=== PATIENT | male | born 1955 | race Caucasian/White ===

== ENCOUNTER 2023-01-08 15:49 | Emergency (ER) | payer MEDICARE, OTHER, SELFPAY ==
[2023-01-08 16:03] VITALS: BP 165/63; PULSE 69; RESP 20; TEMP 36.5; O2SAT 98; BMI 30.1
--- NOTE | 2023-01-08 16:03 | ED_ITS ---
HPI - Skin/Abscess/Foreign Bdy General Chief complaint: Skin/Abscess/Foreign Body Stated complaint: Abscess on back Time Seen by Provider: 01/08/23 16:19 Related Data Previous Rx's Medication Instructions Recorded doxycycline hyclate 100 mg tablet 100 mg PO BID #28 tabs 01/08/23 oxycodone-acetaminophen 5 mg-325 1 tab PO Q6H PRN pain #10 tabs 01/08/23 mg tablet (Percocet) Allergies Allergy/AdvReac Type Severity Reaction Status Date / Time No Known Allergies Allergy Verified 01/08/23 16:07 [facility] Social History Social History Advance Directives: No Advance Directives Information Provided: No Physical Exam Vital Signs: Vital Signs: Last Vital Signs Temp 97.7 F 01/08/23 16:03 Pulse 69 01/08/23 16:03 Resp 20 01/08/23 16:03 BP 165/63 H 01/08/23 16:03 Pulse Ox 98 01/08/23 16:03 O2 Del Method 01/08/23 16:03 BMI result Body Mass Index 30.1 Course Course Course Narrative: This is an RME: Additional HPI, ROS, PE not included below will be deferred to primary provider. Patient is a 67-year-old male who presents to the emergency department for evaluation of a chronic cyst to right upper back, 30+ years, however over past 2 weeks increased size, redness, purulent drainage, chills, tactile fever, significant pain. Denies known history of MRSA. Plan: labs, placed back in waiting room pending bed availability, may require incision and drainage Medications Administered Discontinued Medications Generic Name Dose Route Start Last Admin Trade Name Matilde PRN Reason Stop Dose Admin Lidocaine HCl 30 ml 01/08/23 17:37 01/08/23 17:40 Lidocaine Hcl 1 % Mpf 30 Ml Vial SUBCUT 01/08/23 17:38 30 ml ONCE ONE Administration Protocol Morphine Sulfate 4 mg 01/08/23 17:08 01/08/23 17:16 Morphine Sulfate 4 Mg/Ml Cartridge IVPUSH 01/08/23 17:09 4 mg ONCE ONE Administration Protocol Ondansetron HCl 4 mg 01/08/23 17:08 01/08/23 17:16 Ondansetron Hcl 4 Mg/2 Ml Vial IVPUSH 01/08/23 17:09 4 mg ONCE ONE Administration Medical Decision Making Lab Data 01/08/23 16:46 01/08/23 16:46 Labs: Lab Results 01/08/23 01/08/23 01/08/23 Range/Units 16:46 16:46 16:46 WBC 11.2 H (4.8-10.8) X10*3/uL RBC 5.03 (4.60-5.80) X10*6/uL Hgb 15.1 (14.0-18.0) g/dl Hct 44.5 (42.0-52.0) % MCV 88.5 (80.0-98.0) fL MCH 30.0 (27.0-33.0) pg MCHC 33.9 (31.0-36.0) g/dl RDW 11.9 (11.0-16.0) % Plt Count 349 (160-400) X10*3/uL MPV 10.3 (9.4-12.4) fL Immature Gran % (Auto) 0.4 (0.0-0.4) % Neut % (Auto) 67.9 (45-73) % Lymph % (Auto) 20.0 (20-40) % [place] % (Auto) 7.1 (2-11) % Eos % (Auto) 3.9 (0-4) % Baso % (Auto) 0.7 (0-2) % Lymph # (Auto) 2.2 (1.2-4.9) X10*3/uL [place] # (Auto) 0.8 (0.1-1.2) X10*3/uL Eos # (Auto) 0.4 (0.0-0.4) X10*3/uL Baso # (Auto) 0.1 (0.0-0.2) X10*3/uL Abs Immat Gran (auto) 0.04 H (0.00-0.03) X10*3/uL Absolute Neuts (auto) 7.6 (2.0-8.3) x10*3/uL Absolute Nucleated RBC 0.000 (0.0-0.012) X10*3/uL Nucleated RBC % (auto) 0.0 (0.0-0.2) /100WBC Sodium 144 (135-145) mmol/L Potassium 4.6 (3.3-5.1) mmol/L Chloride 109 H (96-108) mmol/L Carbon Dioxide 24 (22-29) mmol/L Anion Gap 16 (12-20) BUN 14 (9-16) mg/dL Creatinine 1.25 (0.5-1.4) mg/dL Estim Creat Clear Calc 67.3 Estimated GFR 58 Random Glucose 91 (60-115) mg/dL Lactic Acid 0.9 (0.5-2.0) mmol/L Calcium 10.2 (8.4-10.2) mg/dL Total Bilirubin 0.5 (0.0-1.0) mg/dL AST 29 (5-37) U/L ALT 29 (0-40) U/L Alkaline Phosphatase 106 (39-117) U/L Total Creatine Kinase 102 (38-174) U/L Total Protein 7.2 (6.5-8.0) g/dL Albumin 4.2 (3.5-5.0) g/dL Discharge Plan Discharge Clinical Impression: Abscess of skin or subcutaneous tissue Patient Disposition: Home, Self-Care Instructions: Abscess Incision and Drainage (DC) Additional Instructions: Take Doxycycline twice daily for the next 2 weeks. Apply warm compresses every 4 hours for the next 5 days Use Ibuprofen as needed for pain You may use Percocet for more severe breakthrough pain This may make you sleepy, do not drink alcohol or drive after taking it Return in 48 hours for wick removal Call general surgery tomorrow at the number provided for follow up Prescriptions: New doxycycline hyclate 100 mg tablet 100 mg PO BID Qty: 28 0RF oxycodone-acetaminophen [Percocet] 5-325 mg tablet 1 tab PO Q6H PRN (Reason: pain) Qty: 10 0RF Rx Instructions: Partial Fill upon patient request. Referrals: Xavier Walters MD [Physician] - 10 days (Large infected sebaceous cyst. I&D in ED needs follow up)
[2023-01-08 16:55] LABS: MANUAL DIFF FLAG NO
--- NOTE | 2023-01-08 17:00 | ED.GENADULT ---
HPI - General Adult General Chief complaint: Skin/Abscess/Foreign Body Stated complaint: Abscess on back Time Seen by Provider: 01/08/23 16:19 Source: patient, family (), RN notes reviewed and old records reviewed Mode of arrival: ambulatory Limitations: no limitations History of Present Illness HPI narrative: 67-year-old male presents for evaluation of a large red area to his right upper back. The patient reports that he has had a lump to his right upper back for many years He reports that about 2 weeks ago he noticed became red, somewhat inflamed and mildly painful. Over the last 2 weeks it has become significantly larger, more red and more painful. He states a few days ago the area burst open has been draining ever since. 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 and therefore has not been able to seek medical care He reports subjective fevers and chills a few days ago but never took his temperature He reports 8 in 10 pain to that area his right upper back that is worse with palpation or movement Reports a history of similar abscess to his groin many years ago that required OR drainage Related Data Previous Rx's Medication Instructions Recorded doxycycline hyclate 100 mg capsule 100 mg PO BID #28 caps 01/08/23 oxycodone-acetaminophen 5 mg-325 1 - 2 tab PO Q6H PRN pain #10 tabs 01/08/23 mg tablet (Percocet) Allergies Allergy/AdvReac Type Severity Reaction Status Date / Time No Known Allergies Allergy Verified 01/08/23 16:07 Review of Systems Constitutional: Constitutional: Reports as per HPI, Reports chills and Reports fever(s) Cardiovascular: Cardiovascular: Denies chest pain and Denies dyspnea Respiratory: Respiratory: Denies cough and Denies dyspnea Gastrointestinal: Gastrointestinal: Denies abdominal pain, Denies constipation and Denies vomiting Genitourinary: Genitourinary: Denies difficulty urinating and Denies dysuria Integumentary/Breasts: Skin/Breast: Reports furuncle (Right upper back) [facility] Social History Social History Advance Directives: No Advance Directives Information Provided: No Physical Exam ED Vital Signs: Vital Signs - 24 hr 01/08/23 16:03 Temperature 97.7 F Pulse Rate 69 Respiratory Rate 20 Blood Pressure 165/63 H Pulse Oximetry 98 Oxygen Delivery Method Room Air BMI result Body Mass Index 30.1 Const General: healthy appearing, comfortable, no acute distress, alert and awake Nutritional Appearance: well nourished Orientation/consciousness: patient oriented x3 Eyes Eyelids: Yes eyelids normal Conjunctivae: conjunctivae normal Sclerae: sclerae normal Corneas: corneas normal Pupils: Equal, round and reactive pupils present EOM: EOMs intact bilaterally Resp Effort & Inspection: normal respiratory effort, able to speak in complete sentences, no audible wheezes and not labored Skin Other: There is approximately 5 x 7 cm area of fluctuance with surrounding erythema to the right upper back soft tissue area. There is about a 3 cm central opening this purulent drainage. The area is cool to touch palpation. There is no tenderness extending medially, superiorly, laterally or inferiorly General skin exam: elasticity normal, erythema and fluctuance Rashes: no rashes Neuro General: patient oriented x3 Cranial nerves: Yes Equal, round and reactive pupils present Extrem General: Yes full ROM Medications Administered Discontinued Medications Generic Name Dose Route Start Last Admin Trade Name Freq PRN Reason Stop Dose Admin Lidocaine HCl 30 ml 01/08/23 17:37 01/08/23 17:40 Lidocaine Hcl 1 % Mpf 30 Ml Vial SUBCUT 01/08/23 17:38 30 ml ONCE ONE Administration Protocol Morphine Sulfate 4 mg 01/08/23 17:08 01/08/23 17:16 Morphine Sulfate 4 Mg/Ml Cartridge IVPUSH 01/08/23 17:09 4 mg ONCE ONE Administration Protocol Ondansetron HCl 4 mg 01/08/23 17:08 01/08/23 17:16 Ondansetron Hcl 4 Mg/2 Ml Vial IVPUSH 01/08/23 17:09 4 mg ONCE ONE Administration Procedures Abscess I/D Site: other (Right upper back) Side (if applicable): right Sedation/analgesia: other (Morphine) Local Anesthetic: lidocaine 1% Amount of anesthesia used (mL): 10 Technique: incised with blade and ultrasound guided Amount of fluid expressed (mL): 30 Sent for culture/gram staining?: No Irrigation: Yes Packing used?: [email or web address] Complications: other (No complications) Medical Decision Making Medical Decision Making MDM Narrative: This is a 67-year-old male with no history of diabetes presenting for an abscess to his right upper back. The area is quite large it has been present for approximately 2 weeks. It seems the patient has had a benign sebaceous cyst for several years and has been effective the last 2 weeks. The area is open and draining on its own. Over there remains a large area of fluctuance. We will check labs. The patient's vital signs are stable with no evidence of sepsis. He is afebrile, slightly hypotensive, he is not tachycardic in the. Will perform bedside ultrasound to evaluate for extent of abscess. The patient will likely require referral to General surgery. The patient was medicated with morphine and Zofran prior to bedside ultrasound. Blood cultures were also ordered. Patient does have a leukocytosis of 11.2k, however lactic acid is negative at 0.9 again. This is indicative of soft tissue infection without systemic infection. Bedside ultrasound showed large hypoechoic region consistent with abscess. There was no deep and 3 cm below the skin.. See procedure note for incision and drainage. The patient tolerated the procedure well without complication Differential Diagnosis Differential Diagnoses: The differential diagnosis associated with the presentation includes (Abscess, cellulitis, sepsis, sebaceous cyst) Infected sebaceous cyst Lab Data 01/08/23 16:46 01/08/23 16:46 Labs: Lab Results 01/08/23 01/08/23 01/08/23 Range/Units 16:46 16:46 16:46 WBC 11.2 H (4.8-10.8) X10*3/uL RBC 5.03 (4.60-5.80) X10*6/uL Hgb 15.1 (14.0-18.0) g/dl Hct 44.5 (42.0-52.0) % MCV 88.5 (80.0-98.0) fL MCH 30.0 (27.0-33.0) pg MCHC 33.9 (31.0-36.0) g/dl RDW 11.9 (11.0-16.0) % Plt Count 349 (160-400) X10*3/uL MPV 10.3 (9.4-12.4) fL Immature Gran % (Auto) 0.4 (0.0-0.4) % Neut % (Auto) 67.9 (45-73) % Lymph % (Auto) 20.0 (20-40) % [place] % (Auto) 7.1 (2-11) % Eos % (Auto) 3.9 (0-4) % Baso % (Auto) 0.7 (0-2) % Lymph # (Auto) 2.2 (1.2-4.9) X10*3/uL [place] # (Auto) 0.8 (0.1-1.2) X10*3/uL Eos # (Auto) 0.4 (0.0-0.4) X10*3/uL Baso # (Auto) 0.1 (0.0-0.2) X10*3/uL Abs Immat Gran (auto) 0.04 H (0.00-0.03) X10*3/uL Absolute Neuts (auto) 7.6 (2.0-8.3) x10*3/uL Absolute Nucleated RBC 0.000 (0.0-0.012) X10*3/uL Nucleated RBC % (auto) 0.0 (0.0-0.2) /100WBC Sodium 144 (135-145) mmol/L Potassium 4.6 (3.3-5.1) mmol/L Chloride 109 H (96-108) mmol/L Carbon Dioxide 24 (22-29) mmol/L Anion Gap 16 (12-20) BUN 14 (9-16) mg/dL Creatinine 1.25 (0.5-1.4) mg/dL Estim Creat Clear Calc 67.3 Estimated GFR 58 Random Glucose 91 (60-115) mg/dL Lactic Acid 0.9 (0.5-2.0) mmol/L Calcium 10.2 (8.4-10.2) mg/dL Total Bilirubin 0.5 (0.0-1.0) mg/dL AST 29 (5-37) U/L ALT 29 (0-40) U/L Alkaline Phosphatase 106 (39-117) U/L Total Creatine Kinase 102 (38-174) U/L Total Protein 7.2 (6.5-8.0) g/dL Albumin 4.2 (3.5-5.0) g/dL Discharge Plan Discharge Clinical Impression: Abscess of skin or subcutaneous tissue Patient Disposition: Home, Self-Care Instructions: Abscess Incision and Drainage (DC) Additional Instructions: Take Doxycycline twice daily for the next 2 weeks. Apply warm compresses every 4 hours for the next 5 days Use Ibuprofen as needed for pain You may use Percocet for more severe breakthrough pain This may make you sleepy, do not drink alcohol or drive after taking it Return in 48 hours for wick removal Call general surgery tomorrow at the number provided for follow up Prescriptions: New doxycycline hyclate 100 mg capsule 100 mg PO BID Qty: 28 0RF oxycodone-acetaminophen [Percocet] 5-325 mg tablet 1 - 2 tab PO Q6H PRN (Reason: pain) Qty: 10 0RF Rx Instructions: Partial Fill upon patient request. Referrals: Xavier Walters MD [Physician] - 10 days (Large infected sebaceous cyst. I&D in ED needs follow up)
[2023-01-08 17:02] LABS: Basophils Absolute Auto 0.1 X10*3/uL (0.0-0.2); Basophils Percent Auto 0.7 % (0-2); Eosinophils Absolute Auto 0.4 X10*3/uL (0.0-0.4); Eosinophils Percent Auto 3.9 % (0-4); Hematocrit 44.5 % (42.0-52.0); Hemoglobin 15.1 g/dl (14.0-18.0); Imm Gran Abs Auto 0.04 X10*3/uL (0.00-0.03); Imm Gran Pct Auto 0.4 % (0.0-0.4); Lymphocytes Absolute Auto 2.2 X10*3/uL (1.2-4.9); Mean Corpuscular HGB Conc 33.9 g/dl (31.0-36.0); Mean Corpuscular Volume 88.5 fL (80.0-98.0); Mean Platelet Volume 10.3 fL (9.4-12.4); Monocytes Absolute Auto 0.8 X10*3/uL (0.1-1.2); Monocytes Percent Auto 7.1 % (2-11); Neutrophils Absolute Auto 7.6 x10*3/uL (2.0-8.3); Neutrophils Percent Auto 67.9 % (45-73); Platelet Count 349 X10*3/uL (160-400); Red Blood Count 5.03 X10*6/uL (4.60-5.80); Red Cell Distribution Width 11.9 % (11.0-16.0); White Blood Count 11.2 X10*3/uL (4.8-10.8)
[2023-01-08] MEDS: Morphine Sulfate 4 MG/ML CARTRIDGE IVPUSH (17:16)
[2023-01-08] MEDS: ondansetron HCL 4 MG/2 ML VIAL IVPUSH (17:16)
[2023-01-08 17:21] LABS: Lactic Acid 0.9 mmol/L (0.5-2.0)
[2023-01-08 17:26] LABS: Alanine Aminotransferase 29 U/L (0-40); Albumin Level 4.2 g/dL (3.5-5.0); Alkaline Phosphatase 106 U/L (39-117); Anion Gap 16 (12-20); Aspartate Amino Transferase 29 U/L (5-37); Bilirubin Total 0.5 mg/dL (0.0-1.0); Blood Urea Nitrogen 14 mg/dL (9-16); Calcium 10.2 mg/dL (8.4-10.2); Carbon Dioxide 24 mmol/L (22-29); Chloride 109 mmol/L (96-108); Creatinine Clr Calc Pharmacy 67.3; Estimated Glomerular Filt Rate 58; Glucose Random 91 mg/dL (60-115); Potassium 4.6 mmol/L (3.3-5.1); Sodium 144 mmol/L (135-145); Total Protein 7.2 g/dL (6.5-8.0)
[2023-01-08] MEDS: Lidocaine HCl 1 % MPF 30 ML VIAL SUBCUT (17:40)
== END 2023-01-08 18:47 | disposition home or self-care (01) ==
PROVIDERS: Nurse Practitioner Family; Physician Assistant; Emergency Provider Emergency Medicine; PCP Internal Medicine
DX: L02.212 Cutaneous abscess of back [any part, except buttock and flank] (principal); Z79.899 Other long term (current) drug therapy
CPT/HCPCS: 10060; 36415; 80053; 82550; 83605; 85025; 87040; 96374; 96375; 99282; 99284; J2270; J2405

== ENCOUNTER → 2023-01-11 09:10 | Outpatient (BNVA) | payer MEDICARE, OTHER, SELFPAY | PROVIDERS: PCP Internal Medicine; Referring Provider Internal Medicine; Visit Provider Surgery | DX: Z48.00 Encounter for change or removal of nonsurgical wound dressing (principal); L02.212 Cutaneous abscess of back [any part, except buttock and flank] | CPT/HCPCS: 99211 ==

== ENCOUNTER → 2023-01-17 10:07 | Outpatient (BNVA) | payer OTHER, SELFPAY | PROVIDERS: PCP Internal Medicine; Visit Provider Surgery | DX: Z13.89 Encounter for screening for other disorder (principal) ==